=== PATIENT | female | born 1990 | race Caucasian/White ===

== ENCOUNTER 2021-04-26 22:37 | Outpatient (CLI) | payer MEDICAID ==
[~2021-04-26] VITALS: Ht 175.3 cm; Wt 80.0 kg
[~2021-04-26 22:37] MED LIST: ACET1TAB43 PO; BIOT5TAB PO; DOXY100C2 PO; FERR325T18 PO; HYDR1CAP2 PO; IBP600T1 PO; IBUP-1773 PO; LEVO500T69 PO; MULT-608 PO; NITR100C44 PO; OMEG1CAP24 PO; OXYC-12 PO; PREN1TAB39 PO
[2021-04-26 22:45] VITALS: BP 124/76
[2021-04-26 23:10] LABS: BILIRUBIN,URINE NEGATIVE (NEGATIVE); CLARITY,URINE CLOUDY; COLOR,URINE YELLOW; GLUCOSE, URINE (UA) NEGATIVE (NEGATIVE); KETONES,URINE NEGATIVE (NEGATIVE); LEUKOCYTE ESTERASE ,URINE 2+ (NEGATIVE); NITRITE,URINE NEGATIVE (NEGATIVE); PROTEIN,URINE NEGATIVE (NEGATIVE)
[2021-04-26 23:18] LABS: BACTERIA,URINE MODERATE /HPF
[2021-04-27] VITALS: BP 124/76
--- NOTE | 2021-04-27 08:19 | Physician Query-Final Dx ---
GABRIELA04/27/21 0819: Clinic Account Progress/Dx Physician Query: Please give diagnosis Please include # weeks gestation Date of Service Apr 26, 2021 at 22:37 ULISES BENNETT DO 04/27/21 1143: Clinic Account Progress/Dx DIAGNOSIS: Diagnosis 36 week IUP Vaginal discharge GABRIELA,AprApr 27, 2021 08:19 ULISES BENNETT DO Apr 27, 2021 11:43
== END 2021-04-27 00:40 ==
LOC: WSo 22:37 → LDRP 22:37 → WSo 04-27 00:40
PROVIDERS: ATTEND Obstetrics & Gynecology
DX: O23.593 Infection of other part of genital tract in pregnancy, third trimester (principal); Z3A.36 36 weeks gestation of pregnancy
CPT/HCPCS: 81000; 84112; 87077; 87088; G0463; 99213

== ENCOUNTER 2021-05-11 04:36 | Inpatient (IN) | payer MEDICAID ==
[2021-05-11] VITALS (27 sets, daily range): BP systolic 96–133; BP diastolic 51–83
[~2021-05-11] VITALS: Ht 175.3 cm; Wt 79.7 kg
[2021-05-11] MEDS ORDERED: OXYTOCIN PRE-MIX DRIP 500 ML IV SCH ×2 (05:15→09:45)
[2021-05-11] MEDS ORDERED: D5 LR IV SOLUTION 1,000 ML IV SCH (05:15)
[2021-05-11] MEDS ORDERED: MINERAL OIL CONCENTRATE 99.9% 15 ML UDC TOP PRN (05:15)
[2021-05-11 05:25] LABS: BASOPHILS % (AUTO) 0 % (0-10); EOSINOPHILS # (AUTO) 0.2 10^3/uL (0.0-0.3); EOSINOPHILS % (AUTO) 2 % (0-10); HEMATOCRIT 40 % (35-52); HEMOGLOBIN 13.6 g/dL (11.5-16.0); LYMPHOCYTES # (AUTO) 2.1 10^3/uL (1.0-4.0); LYMPHOCYTES % (AUTO) 25 % (12-44); MEAN CORPUSCULAR HEMOGLOBIN 31 pg (25-34); MEAN CORPUSCULAR HGB CONC 34 g/dL (32-36); MEAN CORPUSCULAR VOLUME 90 fL (80-99); MEAN PLATELET VOLUME 10.7 fL (9.0-12.2); MONOCYTES # (AUTO) 0.7 10^3/uL (0.0-1.0); MONOCYTES % (AUTO) 8 % (0-12); NEUTROPHILS # (AUTO) 5.4 10^3/uL (1.8-7.8); NEUTROPHILS % (AUTO) 64 % (42-75); PLATELET COUNT 270 10^3/uL (130-400); WHITE BLOOD COUNT 8.4 10^3/uL (4.3-11.0)
[2021-05-11] MEDS ORDERED: D5 LR IV SOLUTION 1,000 ML IV ONE (05:25)
[2021-05-11] MEDS: CATHETER FLUSH 10 ML SYR IV SCH ×2 (06:00→14:25)
[2021-05-11] MEDS ORDERED: fentaNYL 2 mcg/ml BUPIVA 0.125 100 ML ONE (06:34)
[2021-05-11] MEDS ORDERED: BUTORPHANOL INJ 2 MG/ML (STADOL) VIAL ONE (06:36)
[2021-05-11] MEDS ORDERED: BUTORPHANOL INJ 2 MG/ML (STADOL) VIAL IV ONE (06:45)
[2021-05-11] MEDS ORDERED: LACTATED RINGERS 1,000 ML IV ONE (07:00)
[2021-05-11] MEDS ORDERED: EPIDURAL (fentaNYL 2 MCG/ML BUPIVA 0.125%)100 ML BAG EPI SCH (08:00)
[2021-05-11] MEDS ORDERED: METOCLOPRAMIDE INJ 10 MG/2 ML (REGLAN) IV PRN (08:00)
[2021-05-11] MEDS ORDERED: NALOXONE 0.4 MG/ML 1 ML (NARCAN) VIAL IV PRN ×3 (08:00→09:45)
[2021-05-11] MEDS ORDERED: LACTATED RINGERS 1,000 ML IV SCH (08:00)
[2021-05-11] MEDS ORDERED: diphenhydrAMINE 50 MG/ML INJ (BENADRYL) IV PRN (08:00)
[2021-05-11] MEDS ORDERED: ONDANSETRON 4 MG/2 ML (SDV) Z0FRAN IV PRN (08:00)
--- NOTE | 2021-05-11 08:04 | History & Physical-OB/GYN ---
DIOGENESALANIS 05/11/21 0804: OB - Chief Complaint & HPI Date/Time Date of Admission: Date of Admission: May 11, 2021 at 05:05 Date seen by a Provider: May 11, 2021 Time Seen by a Provider: 08:03 Chief Complaint/History OB-Reason for Admission/Chief: Onset of Labor Hx : 4 Hx Para: 2 Expected Date of Delivery: May 24, 2021 Gestational Age in Weeks: 38 Allergies and Home Medications Allergies Uncoded Allergies: zithromycin (Allergy, Unknown, 05/11/21) Patient Home Medication List Home Medication List Reviewed: Yes Vits W-Ca,Fe,Fa(<1MG) () 1 Each Tablet, 1 EACH PO DAILY, (Reported) Entered as Reported by: NASRA PINEDA on 04/10/11 6328 Last Action: Reviewed OB - History Hx of Present Care: Yes Ultrasounds: Normal mid trimester US Obstetrical Complications: None Medical Complications: None Information Induced Hypertension: No Maternal Gestational Diabetes: No Hemorrhage: No Obstetrical History Hx : 4 Hx Para: 3 Hx # Term Pregnancies: 2 Number of Living Children: 2 Hx Termination: No Hx Multiple Gestation: No Hx Stillbirth: Yes (x1) Hx Complication: No Hx Induced Hypertens: No Hx Maternal Gestational Diabet: No Delivery History Hx Dystocia: No Hx Large For Gestational Age I: No Hx Small for Gestational Age I: No Hx Section: No Hx Vaginal Delivery Post C-Sec: No Hx Blood Disorders: No Adverse Rxn to Tranfusion: No Patient Past Medical History Denies any medical conditions Surgical History: benign lumpectomy, leep, and bartolian cyst Social History/Family History Alcohol Use: Denies Use Recreational Drug Use: No Smoking Cessation: Never smoker 2nd Hand Smoke Exposure: No Significant Family Hx Denies any pertinent family history Immunizations Influenza Vaccine Up-to-Date: No; Not Current Hepatitis A: No Hepatitis B: No Tetanus Booster (TDap): Unknown OB - Admission Exam Physical Exam Vitals: Vital Signs 05/11/21 04:52 Temp 36.7 Pulse 70 Resp 18 B/P (MAP) 115/75 (88) Pulse Ox 97 O2 Delivery Room Air HEENT: EOMI Heart: Rhythm Normal Lungs: Clear Abdomen: Gravid Extremities: Normal Heart Rate: 140's Accelerations: Accelerations Present Decelerations: No Decelerations Assistant Professor Of Nursing Variability: Average (6-25) Contractions on Admission: < 5 Minutes Apart Labs Laboratory Tests Test 05/11/21 05:15 Range/Units White Blood Count 8.4 4.3-11.0 10^3/uL Red Blood Count 4.40 3.80-5.11 10^6/uL Hemoglobin 13.6 11.5-16.0 g/dL Hematocrit 40 35-52 % Mean Corpuscular Volume 90 80-99 fL Mean Corpuscular Hemoglobin 31 25-34 pg Mean Corpuscular Hemoglobin Concent 34 32-36 g/dL Red Cell Distribution Width 12.3 10.0-14.5 % Platelet Count 270 130-400 10^3/uL Mean Platelet Volume 10.7 9.0-12.2 fL Immature Granulocyte % (Auto) 0 % Neutrophils (%) (Auto) 64 42-75 % Lymphocytes (%) (Auto) 25 12-44 % Monocytes (%) (Auto) 8 0-12 % Eosinophils (%) (Auto) 2 0-10 % Basophils (%) (Auto) 0 0-10 % Neutrophils # (Auto) 5.4 1.8-7.8 10^3/uL Lymphocytes # (Auto) 2.1 1.0-4.0 10^3/uL Monocytes # (Auto) 0.7 0.0-1.0 10^3/uL Eosinophils # (Auto) 0.2 0.0-0.3 10^3/uL Basophils # (Auto) 0.0 0.0-0.1 10^3/uL Immature Granulocyte # (Auto) 0.0 0.0-0.1 10^3/uL OB - Assessment/Plan/Diagnosis Assessment Assessment: rupture of membranes Admission Dx 30yo F , with rupture of membrane 38 weeks gestation FHR - Baseline 140's, moderate variability Ruddy - Dr. Degroot Plan Plan: Expectant Management ERROL LUNA DO 05/12/21 0215: OB - Chief Complaint & HPI Chief Complaint/History OB-Reason for Admission/Chief: Onset of Labor Other reason for admission: patient presented in active labor with gross ROM Admission Nurse Assessment Rev: Yes History of Labs B+/- HIV - HBsAg - Hep C - VDRL NR GBS - Allergies and Home Medications Allergies Uncoded Allergies: zithromycin (Allergy, Unknown, 05/11/21) Patient Home Medication List Home Medication List Reviewed: Yes Vits W-Ca,Fe,Fa(<1MG) () 1 Each Tablet, 1 EACH PO DAILY, (Reported) Entered as Reported by: NASRA PINEDA on 04/10/11 1331 Last Action: Reviewed OB - History Information Induced Hypertension: No Maternal Gestational Diabetes: No Hemorrhage: No Delivery History Hx Dystocia: No Hx Section: No Immunizations Tetanus Booster (TDap): Less than 5yrs Rubella: immune RPR/VDRL: Negative GBS Status: Negative HBsAG: Negative OB - Admission Exam Physical Exam Cervical Dilatation: 5cm Effacement: 75% Station: -1 Membranes: Ruptured Amniotic Fluid: Clear OB - Assessment/Plan/Diagnosis Assessment Admission Status: Inpatient Order (span 2 midnights) Reason for Inpatient Admission: labor Supervisory-Addendum Brief Verification & Attestation Participated in pt care: physical Personally performed: supervision of care Care discussed with: Medical Student Procedures: n/a I have reviewed history and physical with patient and have examined patient and agree with student assessment Admit for labor and expectant management Anticipate ALANIS SHETTY May 11, 2021 08:04 ERROL LUNA DO May 12, 2021 02:15
--- NOTE | 2021-05-11 09:41 | OB Labor & Delivery Record ---
Vag Delivery Note Vag Delivery Note Date of Delivery: 05/11/21 Preoperative Diagnosis: Caryn Alonzo is a 30 /Para 4 / 2,Gestational Age 38 1/7 weeks with SROM Postoperative Diagnosis: Same Surgeon: ERROL LUNA Ingredient Scaler Helper: Scar Humphreys, MS III Anesthesia: epidural Delivery Type: Findings: Viable female infant, apgars 9/9, weight pending Lacerations: none Intact placenta with 3 vessel cord. No nuchal cord, body cord or shoulder dystocia Estimated Blood Loss: 100 ml Complications: None Condition: Stable Description of Procedure: The patient is a 30 year old female who presented with SROM in early labor. She was admitted and informed consent was obtained. Her labor course was remarkable for epidural placement. She progressed to complete dilatation and began to push. She was then set up for delivery. The 's head was delivered atraumatically in the MARVA position. The shoulders and remainder of the 's body were then delivered without difficulty. Upon delivery, the head was held below the level of the perineum and the mouth and nares were bulb suctioned. The cord was doubly clamped and cut and the infant was handed off to the pediatric staff. An intact placenta with 3-vessel cord delivered via Douglas and there was found to be m inimal bleeding.~ Vigorous fundal massage was performed and the fundus was found to be firm. IV oxytocin was given. Examination of the vagina and perineum revealed no laceration. Following the delivery, sponge, instrument and needle counts were correct. Mom and baby were both in stable condition in the labor suite. Vitals - Labs Vital Signs - I&O Vital Signs Date Time Temp Pulse Resp B/P (MAP) Pulse Ox O2 Delivery O2 Flow Rate FiO2 05/11/21 04:52 36.7 70 18 97 Room Air 05/11/21 04:52 36.7 70 18 115/75 (88) 97 Room Air Labs Laboratory Tests 05/11/21 05:15: White Blood Count 8.4, Red Blood Count 4.40, Hemoglobin 13.6, Hematocrit 40, Mean Corpuscular Volume 90, Mean Corpuscular Hemoglobin 31, Mean Corpuscular Hemoglobin Concent 34, Red Cell Distribution Width 12.3, Platelet Count 270, Mean Platelet Volume 10.7, Immature Granulocyte % (Auto) 0, Neutrophils (%) (Auto) 64, Lymphocytes (%) (Auto) 25, Monocytes (%) (Auto) 8, Eosinophils (%) (Auto) 2, Basophils (%) (Auto) 0, Neutrophils # (Auto) 5.4, Lymphocytes # (Auto) 2.1, Monocytes # (Auto) 0.7, Eosinophils # (Auto) 0.2, Basophils # (Auto) 0.0, Immature Granulocyte # (Auto) 0.0 ERROL LUNA DO May 11, 2021 09:41
[2021-05-11] MEDS ORDERED: MEASLES,MUMPS,RUBELLA 1 EA INJ SQ ONE (09:45)
[2021-05-11] MEDS ORDERED: BENZOCAINE/MENTHOL (DERMOPLAST) 56 ML CAN TP PRN (09:45)
[2021-05-11] MEDS ORDERED: TETANUS,DIPTH,PERTUSS P/F (BOOSTRIX) 0.5 ML VIAL IM ONE ×2 (09:45→15:50)
[2021-05-11] MEDS ORDERED: WITCH HAZEL(TUCKS) 40 EA JAR TOP PRN (09:45)
[2021-05-11] MEDS ORDERED: CATHETER FLUSH 10 ML SYR IV SCH (14:00)
[2021-05-11] MEDS: IBUPROFEN 600 MG (MOTRIN) TAB PO SCH ×2 (14:17→20:56)
[2021-05-11] MEDS: ACETAMINOPHEN 500 MG TAB (TYLENOL) PO SCH ×2 (14:17→23:48)
[2021-05-11] MEDS ORDERED: CALCIUM CARBONATE 500 MG (TUMS) TAB.CHEW PO PRN (18:15)
[2021-05-11] MEDS: DOCUSATE SODIUM 100 MG (COLACE) CAP PO SCH (20:56)
[2021-05-12] MEDS: IBUPROFEN 600 MG (MOTRIN) TAB PO SCH ×2 (03:41→10:04)
[2021-05-12 03:46] VITALS: BP 112/80
[2021-05-12 06:50] LABS: BASOPHILS % (AUTO) 0 % (0-10); EOSINOPHILS # (AUTO) 0.1 10^3/uL (0.0-0.3); EOSINOPHILS % (AUTO) 2 % (0-10); HEMATOCRIT 37 % (35-52); HEMOGLOBIN 12.8 g/dL (11.5-16.0); LYMPHOCYTES % (AUTO) 27 % (12-44); MEAN CORPUSCULAR HEMOGLOBIN 31 pg (25-34); MEAN CORPUSCULAR HGB CONC 34 g/dL (32-36); MEAN CORPUSCULAR VOLUME 91 fL (80-99); MEAN PLATELET VOLUME 10.9 fL (9.0-12.2); MONOCYTES # (AUTO) 0.6 10^3/uL (0.0-1.0); MONOCYTES % (AUTO) 8 % (0-12); NEUTROPHILS # (AUTO) 4.7 10^3/uL (1.8-7.8); NEUTROPHILS % (AUTO) 62 % (42-75); PLATELET COUNT 239 10^3/uL (130-400); WHITE BLOOD COUNT 7.5 10^3/uL (4.3-11.0)
[2021-05-12] MEDS ORDERED: PRENATAL VITAMIN 1 EA TAB PO SCH (07:00)
--- NOTE | 2021-05-12 08:22 | Postpartum Progress Note ---
Note Note Day # 1 s/p Subjective: Patient is without complaints. Ambulating, voiding. Tolerating a regular diet w ithout nausea or vomiting. Normal lochia. Pain is well controlled with oral pain medications. breast feeding. Objective: Laboratory Tests Test 05/12/21 05:41 Range/Units White Blood Count 7.5 4.3-11.0 10^3/uL Red Blood Count 4.10 3.80-5.11 10^6/uL Hemoglobin 12.8 11.5-16.0 g/dL Hematocrit 37 35-52 % Mean Corpuscular Volume 91 80-99 fL Mean Corpuscular Hemoglobin 31 25-34 pg Mean Corpuscular Hemoglobin Concent 34 32-36 g/dL Red Cell Distribution Width 12.4 10.0-14.5 % Platelet Count 239 130-400 10^3/uL Mean Platelet Volume 10.9 9.0-12.2 fL Immature Granulocyte % (Auto) 1 % Neutrophils (%) (Auto) 62 42-75 % Lymphocytes (%) (Auto) 27 12-44 % Monocytes (%) (Auto) 8 0-12 % Eosinophils (%) (Auto) 2 0-10 % Basophils (%) (Auto) 0 0-10 % Neutrophils # (Auto) 4.7 1.8-7.8 10^3/uL Lymphocytes # (Auto) 2.0 1.0-4.0 10^3/uL Monocytes # (Auto) 0.6 0.0-1.0 10^3/uL Eosinophils # (Auto) 0.1 0.0-0.3 10^3/uL Basophils # (Auto) 0.0 0.0-0.1 10^3/uL Immature Granulocyte # (Auto) 0.0 0.0-0.1 10^3/uL Physical Exam: General - Alert and oriented, no apparent distress Abdomen - Soft, appropriately tender to palpation, non-distended, fundus firm at umbilicus Extremities - no edema, negative Kevin's bilaterally Assessment: 1. post- day # 1, status post spontaneous vaginal delivery. Recovering well, hemodynamically stable Plan: Routine care. Encourage breast feeding. Encourage ambulation. Ferrous sulfate supplementation. Plan for discharge tpday or tomorrow Vitals - Labs Vital Signs - I&O Vital Signs Date Time Temp Pulse Resp B/P (MAP) Pulse Ox O2 Delivery O2 Flow Rate FiO2 05/12/21 03:46 36.0 61 18 112/80 (91) 98 Room Air 05/11/21 23:48 36.3 75 18 118/73 (88) 98 Room Air 05/11/21 20:56 36.9 88 18 128/74 (92) 98 Room Air 05/11/21 15:57 36.6 73 18 122/83 (96) 98 Room Air 05/11/21 11:30 36.5 80 18 115/74 (88) 95 Room Air 05/11/21 11:00 36.6 68 18 122/58 (79) 95 Room Air 05/11/21 10:45 73 18 133/72 (92) Room Air 05/11/21 10:35 60 18 100/62 (75) Room Air 05/11/21 10:24 70 18 117/70 (86) Room Air 05/11/21 10:15 66 18 112/65 (81) Room Air 05/11/21 10:00 37.2 73 18 108/69 (82) Room Air 05/11/21 09:47 37.0 74 18 108/51 (70) Room Air 05/11/21 09:30 36.4 80 18 107/58 (74) 97 Room Air 05/11/21 09:15 36.2 72 18 110/64 (79) 97 Room Air 05/11/21 09:00 68 18 107/69 (82) 97 Room Air 05/11/21 08:45 86 18 96/66 (76) 97 Room Air 05/11/21 08:30 76 18 101/72 (82) 96 Room Air I & O 05/12/21 07:00 Intake Total 2180 ml Output Total 1700 ml Balance 480 ml Labs Laboratory Tests 05/12/21 05:41: White Blood Count 7.5, Red Blood Count 4.10, Hemoglobin 12.8, Hematocrit 37, M hanna Corpuscular Volume 91, Mean Corpuscular Hemoglobin 31, Mean Corpuscular Hemoglobin Concent 34, Red Cell Distribution Width 12.4, Platelet Count 239, Mean Platelet Volume 10.9, Immature Granulocyte % (Auto) 1, Neutrophils (%) (Auto) 62, Lymphocytes (%) (Auto) 27, Monocytes (%) (Auto) 8, Eosinophils (%) (Auto) 2, Basophils (%) (Auto) 0, Neutrophils # (Auto) 4.7, Lymphocytes # (Auto) 2.0, Monocytes # (Auto) 0.6, Eosinophils # (Auto) 0.1, Basophils # (Auto) 0.0, Immature Granulocyte # (Auto) 0.0 ERROL LUNA DO May 12, 2021 08:22
[2021-05-12 08:27] VITALS: BP 113/66
[2021-05-12] MEDS: ACETAMINOPHEN 500 MG TAB (TYLENOL) PO SCH ×2 (08:29→14:00)
[2021-05-12] MEDS: DOCUSATE SODIUM 100 MG (COLACE) CAP PO SCH (08:29)
[2021-05-12] MEDS ORDERED: FERROUS SULF 325 MG (IRON) TAB PO SCH (09:00)
--- NOTE | 2021-05-12 12:29 | Anesthesia-Regional Post-Op ---
Regional Patient Condition Mental Status: Alert, Oriented x3 Circulation: Same as Pre-Op Headache: Absent Sensation: Full Recovery Motor Block: Absent Post Op Complications Complications None Follow Up Care/Instructions Patient Instructions None needed. Anesthesia/Patient Condition Patient is doing well, no complaints, stable vital signs, no apparent adverse anesthesia problems. No complications reported per nursing. ANITA BRAVO CRNA May 12, 2021 12:29
[2021-05-12] MEDS ORDERED: IBUP-844 PO (13:18)
[2021-05-12] MEDS ORDERED: ACET-93 PO (13:18)
--- NOTE | 2021-05-12 13:19 | Discharge Inst-Women's Service ---
Discharge Inst-Women's Serv Depart Medication/Instructions New, Converted or Re-Newed RX: Transmitted to Pharmacy Final Diagnosis spontaneous rupture of membranes 38 week gestation Labor Problems Reviewed?: Yes Consults/Follow Up Additional Follow Up: Yes (6 weeks) Activity Activity: Activity as Tolerated Driving Instructions: You May Drive NO SMOKING: NO SMOKING Nothing Inside Vagina: No Douching, No Tamora, No Tampons Diet Discharge Diet: No Restrictions Symptoms to Report to : Bleeding Excessive, Pain Increased, Fever Over 101 Degrees F, Vaginal Bleeding Increase, Cramps in Feet or Legs, Vaginal Discharge Foul For Any Problems or Questions: Contact Your Physician ERROL LUNA DO May 12, 2021 13:19
== END 2021-05-12 14:40 | disposition home or self-care (01) | DRG 807 ==
LOC: WSo 04:36 → LDRP 04:37 → WSo 05:04 → LDRP 05:05
PROVIDERS: ADMIT Obstetrics & Gynecology; ATTEND Obstetrics & Gynecology
PROC: 10E0XZZ Delivery of Products of Conception, External Approach (ICD-10-PCS; principal; 2021-05-11)
DX: O80 Encounter for full-term uncomplicated delivery (principal); Z37.0 Single live birth; Z3A.38 38 weeks gestation of pregnancy; Z23 Encounter for immunization
CPT/HCPCS: 36415; 85025; 86850; 86900; 86901; 90707; 90715; 99212